=== PATIENT | male | born 1955 | race Hispanic/Latino ===

== ENCOUNTER 2018-10-15 14:15 | Emergency (ER) | payer BC ==
[2018-10-15 14:22] VITALS: BMI 34.0
[2018-10-15 14:43] VITALS: BP 102/53; PULSE 82; RESP 18; TEMP 98.7; O2SAT 94
--- NOTE | 2018-10-15 14:48 | ED PDOC ---
Arrival/HPI - General Historian: Patient - History of Present Illness Narrative History of Present Illness (Text): 10/15/18 14:42 Patient is a 63yo M with PMH HTN, BPH, arthritis presents to the ED s/p syncopal episode. Patient reports blurry vision and dizziness about [address] Beavers's office. He was in the bathroom at the time and after feeling dizzy fell down on his back. He denies any head trauma or loss of consciousness. Patient reports complete resolution of symptoms at this time. Patient was at [facility] [place] [place] done this morning for which he had to fast, and went straight to Dr. Beavers's thereafter. He has not eaten a meal yet today and reports taking his lasix this morning. He also reports diarrhea that began yesterday. He denies blood in the stool or urine. He denies headache, chest pain, palpitations, nausea, vomiting, abdominal pain, numbness, tingling. Time/Duration: 1 hour Symptom Onset: Sudden Symptom Course: Resolved <Bjorn Chin - Last Filed: 10/15/18 17:19> <Huber Puri - Last Filed: 10/15/18 18:44> - General Chief Complaint: Syncope Time Seen by Provider: 10/15/18 14:30 Past Medical History - Cardiac Hx Hypertension: Yes - Psychiatric Hx Substance Use: No - Surgical History Hx Orthopedic Surgery: Yes - Anesthesia Hx Anesthesia: Yes Hx Anesthesia Reactions: No <Bjorn Chin - Last Filed: 10/15/18 17:19> Family/Social History Family/Social History: No Known Family HX Smoking Status: Former Smoker Hx Alcohol Use: No Hx Substance Use: No <Bjorn Chin - Last Filed: 10/15/18 17:19> Allergies/Home Meds <Bjorn Chin - Last Filed: 10/15/18 17:19> <Huber Puri - Last Filed: 10/15/18 18:44> Allergies/Adverse Reactions: Allergies No Known Allergies Allergy (Verified 03/28/14 15:37) Home Medications: Home Meds Medication Instructions Recorded Confirmed Benazepril HCl [Lotensin] 20 mg PO DAILY 10/15/18 10/15/18 Chlorthalidone [Hygroton] 25 mg PO DAILY 10/15/18 10/15/18 Esomeprazole Sodium [Nexium I.v.] 40 mg PO DAILY 10/15/18 10/15/18 Fluticasone Propionate [Flovent 10.6 gm IH DAILY 10/15/18 10/15/18 Hfa] Furosemide [Lasix] 40 mg PO DAILY 10/15/18 10/15/18 Potassium Chloride [Klor-Con M20] 20 meq PO DAILY 10/15/18 10/15/18 Review of Systems - Review of Systems Constitutional: Normal Eyes: Normal ENT: Normal Respiratory: Normal Cardiovascular: Normal. absent: Chest Pain, Palpitations Gastrointestinal: Diarrhea. absent: Abdominal Pain, Nausea, Vomiting, Hematochezia, Hematemesis Genitourinary Male: Normal. absent: Hematuria Musculoskeletal: Normal Skin: Laceration Neurological: Normal. absent: Headache, Dizziness, Focal Weakness, Gait Changes Endocrine: Normal Hemo/Lymphatic: Normal Psychiatric: Normal <Bjorn Chin - Last Filed: 10/15/18 17:19> Physical Exam Temperature: Afebrile Blood Pressure: Normal Pulse: Regular Respiratory Rate: Normal Appearance: Positive for: Well-Appearing, Non-Toxic, Comfortable Pain Distress: None Mental Status: Positive for: Alert and Oriented X 3 - Systems Exam Head: Present: Atraumatic Pupils: Present: PERRL Extroacular Muscles: Present: EOMI Conjunctiva: Present: Normal Mouth: Present: Moist Mucous Membranes Neck: Present: Normal Range of Motion Respiratory/Chest: Present: Clear to Auscultation, Good Air Exchange. No: Respiratory Distress, Accessory Muscle Use Cardiovascular: Present: Regular Rate and Rhythm, Normal S1, S2. No: Murmurs Abdomen: Present: Normal Bowel Sounds. No: Tenderness, Distention, Peritoneal Signs Upper Extremity: Present: Normal Inspection, Normal ROM, Norm 2-Pt Discrimination. No: Cyanosis, Edema, Erythema Lower Extremity: Present: Normal Inspection, Normal ROM. No: Edema, Tenderness, Erythema, Deformity Neurological: Present: GCS=15, CN II-XII Intact, Speech Normal, Motor Func Grossly Intact, Normal Sensory Function Skin: Present: Warm, Normal Color, Laceration (superficial laceration of L lower back, no bleeding). No: Rashes Psychiatric: Present: Alert, Oriented x 3, Normal Insight, Normal Concentration <Bjorn Chin - Last Filed: 10/15/18 17:19> Vital Signs Temp Pulse Resp BP Pulse Ox 10/15/18 14:22 98.7 F 82 18 102/53 L 94 L <Huber Puri - Last Filed: 10/15/18 18:44> Medical Decision Making ED Course and Treatment: 10/15/18 15:13 Syncope, likely secondary to dehydration - EKG: NSR @ 76bpm - f/u CBC, CMP, troponin - orthostatics - NS bolus - reassess 10/15/18 17:01 CT head showing no acute intracranial abnormalities Xray L-spine showing no acute abnormalities. Troponin neg. 10/15/18 17:19 Labwork reviewed. Rpt BP 121/66. Discussed with patient dehydration likely secondary to decreased PO intake and diarrhea. Instructed patient to return to ED if symptoms worsened and to follow up with Dr. Beavers within 2 days. Patient is to drink plenty of fluids. Patient understood instructions and agreed. <Bjorn Chin - Last Filed: 10/15/18 17:19> ED Course and Treatment: 10/15/18 15:27 Patient Seen with Resident: In agreement with resident note which contains more details about the patient. Patient seen and evaluated with resident. Came up with plan and treatment together. - Medication Orders Current Medication Orders: Sodium Chloride (Sodium Chloride 0.9%) 1,000 mls @ 999 mls/hr IV .Q1H1M STA Stop: 10/15/18 16:12 <Huber Puri - Last Filed: 10/15/18 18:44> - PA / FANCY PACKER / Resident Statement JOSELIN has reviewed & agrees with the documentation as recorded. / has examined the patient and agrees with the treatment plan. <Huber Puri - Last Filed: 10/15/18 18:44> Disposition/Present on Arrival - Present on Arrival Any Indicators Present on Arrival: No History of DVT/PE: No History of Uncontrolled Diabetes: No Urinary Catheter: No History Surgical Site Infection Following: Orthopedic Procedures - Disposition Have Diagnosis and Disposition been Completed?: Yes Disposition Time: 17:21 <Bjorn Chin - Last Filed: 10/15/18 17:19> <Huber Puri - Last Filed: 10/15/18 18:44> - Disposition Diagnosis: Dehydration, Syncope Disposition: HOME/ ROUTINE Patient Problems: Current Active Problems Problem Status Onset Dehydration Acute Syncope Acute Condition: IMPROVED Discharge Instructions (ExitCare): Dehydration, Adult (DC), Syncope (Fainting) (DC) Additional Instructions: Please follow up with Dr. Beavers within 2 days. Drink plenty of fluids and eat regular meals throughout the day. If symptoms worsen, return to the emergency department. Referrals: Jimenez Beavers MD [Primary Care Provider] - Follow up with primary Forms: [employer] (Spanish)
[2018-10-15] MEDS ORDERED: Sodium Chloride 0.9% 1,000 ML IV STA (15:12)
[2018-10-15 16:33] LABS: INR 1.06; PROTHROMBIN TIME 11.8 SECONDS (9.4-12.5)
[2018-10-15 16:40] LABS: BASO # 0.01 K/mm3 (0.0-2.0); BASO % 0.1 % (0.0-3.0); EOS # 0.1 (0.0-0.7); EOS % 0.5 % (1.5-5.0); HEMOGLOBIN 14.2 g/dL (14.0-18.0); LYMPH # 0.9 (1.2-3.4); LYMPH % 9.5 % (22.0-35.0); MEAN CELL VOLUME 92.3 fl (80.0-105.0); MEAN CORPUSCULAR HEMOGLOBIN 30.4 pg (25.0-35.0); MEAN CORPUSCULAR HGB CONC 32.9 g/dl (31.0-37.0); MEAN PLATELET VOLUME 9.3 fl (7.0-11.0); MONO # 0.7 (0.1-0.6); MONO % 7.8 % (1.0-6.0); RBC 4.67 10^6/uL (3.5-6.1); RED CELL DISTRIBUTION WIDTH 13.5 % (11.5-14.5); WHITE BLOOD COUNT 9.3 10^3/uL (4.5-11.0)
[2018-10-15 16:47] LABS: B-TYPE NATRIURETIC PEPTIDE 43.1 pg/mL (0-450); TROPONIN I < 0.01 ng/mL
[2018-10-15 16:48] LABS: ALB/GLOB RATIO 1.3 (1.1-1.8); ALBUMIN 4.5 g/dL (3.0-4.8); ALT/SGPT 23 U/L (7-56); AST/SGOT 29 U/L (17-59); BLOOD UREA NITROGEN 26 mg/dL (7-21); CALCIUM 9.4 mg/dL (8.4-10.5); GFR NON-AFRICAN AMERICAN > 60
--- NOTE | 2018-10-15 16:59 | CT ---
Date of service: 10/15/2018 PROCEDURE: CT HEAD WITHOUT CONTRAST. HISTORY: headache COMPARISON: 07/07/2015. TECHNIQUE: Axial computed tomography images were obtained through the head/brain without intravenous contrast. Supplemental Coronal and Sagittal projections created and reviewed. Radiation dose: Total exam DLP = 996.59 mGy-cm. This CT exam was performed using one or more of the following dose reduction techniques: Automated exposure control, adjustment of the mA and/or kV according to patient size, and/or use of iterative reconstruction technique. FINDINGS: HEMORRHAGE: No intracranial hemorrhage. BRAIN: No mass effect or edema. No atrophy or chronic microvascular ischemic changes. VENTRICLES: Unremarkable. No hydrocephalus. CALVARIUM: Unremarkable. PARANASAL SINUSES: Unremarkable as visualized. No significant inflammatory changes. MASTOID AIR CELLS: Unremarkable as visualized. No inflammatory changes. OTHER FINDINGS: None. IMPRESSION: No acute intracranial abnormalities. No significant findings to account for the clinical presentation. No significant interval change compared to the prior examination(s).
--- NOTE | 2018-10-15 17:02 | RAD ---
Date of service: 10/15/2018 PROCEDURE: Radiographs of the Lumbar Spine. HISTORY: scratch on back COMPARISON: No prior. TECHNIQUE: 5 views obtained. FINDINGS: BONES: Normal alignment. No listhesis. No fracture. DISC SPACES: Degenerative changes L1-2. OTHER FINDINGS: None. IMPRESSION: No acute findings related to/ accounting for the clinical presentation.
--- NOTE | 2018-10-15 22:45 | CARD ---
APPROVED REPORT Date of service: 10/15/2018 EKG Measurement Heart [id number] <Conclusion> Poor data quality, interpretation may be adversely affected Normal sinus rhythm Normal ECG
== END 2018-10-15 22:15 | disposition home or self-care (01) ==
LOC: ED 14:15
DX: R55 Syncope and collapse (principal); E86.0 Dehydration; I10 Essential (primary) hypertension; Z87.891 Personal history of nicotine dependence
CPT/HCPCS: 70450; 72110; 80053; 82948; 83735; 83880; 84484; 85025; 85610; 85730; 93005; 96360; 99285; J7030